=== PATIENT | female | born 1980 | race Caucasian/White ===

== ENCOUNTER 2019-11-06 00:27 | Emergency (ER) | payer OTHER ==
[2019-11-06] MEDS ORDERED: Triamcinolone 40 MG/ML VIAL ONE (00:57)
[2019-11-06] MEDS ORDERED: diphenhydrAMINE 50 MG/ML VIAL ONE (00:57)
== END 2019-11-06 01:35 | disposition home or self-care (01) ==
LOC: MADERS 00:27
DX: L23.7 Allergic contact dermatitis due to plants, except food (principal); F17.290 Nicotine dependence, other tobacco product, uncomplicated; Z79.899 Other long term (current) drug therapy
CPT/HCPCS: 96372; 99282; J1200; J3301

== ENCOUNTER 2019-11-06 13:36 | Emergency (ER) | payer OTHER | END 2019-11-06 14:24 | disposition home or self-care (01) | LOC: MADERS 13:36 | DX: L50.9 Urticaria, unspecified (principal); F17.290 Nicotine dependence, other tobacco product, uncomplicated; Z79.899 Other long term (current) drug therapy | CPT/HCPCS: 96372; 99282; J1200; J3301 ==